=== PATIENT | female | born 1940 | race Caucasian/White ===

== ENCOUNTER → 2016-09-08 08:58 | Outpatient (CLI) | payer MEDICARE, OTHER | END | disposition home or self-care (01) | LOC: D.CT 08:58 | DX: R63.4 Abnormal weight loss (principal) ==

== ENCOUNTER → 2018-01-11 11:04 | Outpatient (CLI) | payer MEDICARE, OTHER | END | disposition home or self-care (01) | LOC: D.MRI 11:04 | DX: M54.5 Low back pain (principal) ==

== ENCOUNTER 2018-01-19 20:10 | Emergency (ER) | payer MEDICARE, OTHER ==
[~2018-01-19] VITALS: Ht 157.5 cm; Wt 56.8 kg
[2018-01-19 20:33] VITALS: Ht 157.5 cm; Wt 56.8 kg
[2018-01-19] MEDS ORDERED: ABX FOR UTI (20:34)
[2018-01-19] MEDS ORDERED: DONEPEZIL HCL10 MG PO (20:34)
[2018-01-19 21:39] LABS: BASOPHILS 0.2 % (0-2); EOSINOPHILS 0.2 % (0-7); HEMATOCRIT 42.3 % (36.0-48.0); HEMOGLOBIN 14.2 g/dL (12-16); IMMATURE GRANULOCYTES 0.4 % (0-5); LYMPHOCYTES 8.4 % (15-50); MCH 30.4 pg (26.0-34.0); MCHC 33.6 g/dL (31.0-37.0); MCV 90.6 fL (80.0-100.0); MEAN PLATELET VOLUME 9.3 fL (7.4-10.4); MONOCYTES 4.7 % (2-11); NEUTROPHILS 86.1 % (40-80); PLATELET COUNT 383 10x3/uL (130-400); RBC 4.67 10x6/uL (4.00-5.40); RDW 13.5 % (11.5-14.5); WBC 12.2 10x3/uL (4.8-10.8)
[2018-01-19 21:46] LABS: ALBUMIN 3.3 g/dL (3.4-5.0); ALKALINE PHOSPHATASE 56 U/L (46-116); ALT (SGPT) 19 U/L (10-68); BILIRUBIN - TOTAL 0.29 mg/dL (0.2-1.3); CALC OSMOLALITY 281 mosm/kg (275-300); CALCIUM 9.2 mg/dL (8.5-10.1); CARBON DIOXIDE 29.4 mmol/L (21.0-32.0); CHLORIDE - SERUM 102 mmol/L (98-107); CREATININE - SERUM 0.8 mg/dL (0.6-1.3); GLUCOSE 130 mg/dL (74-106); POTASSIUM - SERUM 4.2 mmol/L (3.5-5.1); PROTEIN - SERUM 7.1 g/dL (6.4-8.2); SODIUM 141 mmol/L (136-145); UREA NITROGEN 11 mg/dL (7-18); eGFR NON AFRICAN AMERICAN 74 mL/min (90-120)
[2018-01-19 21:57] LABS: CKMB 0.5 U/L (0.0-3.6); CREATINE KINASE 36 UL (21-215)
[2018-01-19 21:58] LABS: TROPONIN-I < 0.017 ng/mL (0.000-0.060)
[2018-01-19 22:05] LABS: APPEARANCE CLEAR (CLEAR); COLOR YELLOW (YELLOW)
[2018-01-19 22:06] LABS: BILIRUBIN NEGATIVE (NEGATIVE); GLUCOSE NEGATIVE (NEGATIVE); KETONE NEGATIVE (NEGATIVE); NITRITE NEGATIVE (NEGATIVE); PROTEIN NEGATIVE (NEGATIVE); SPECIFIC GRAVITY 1.015 (1.005-1.020); UROBILINOGEN NORMAL (NORMAL)
[2018-01-19 22:59] VITALS: BP 140/54
== END 2018-01-19 22:59 | disposition home or self-care (01) ==
LOC: D.ER 20:10
PROVIDERS: Family Medicine
DX: S01.01XA Laceration without foreign body of scalp, initial encounter (principal); W18.30XA Fall on same level, unspecified, initial encounter; Y93.89 Activity, other specified; Y92.019 Unspecified place in single-family (private) house as the place of occurrence of the external cause; R55 Syncope and collapse; F03.90 Unspecified dementia, unspecified severity, without behavioral disturbance, psychotic disturbance, mood disturbance, and anxiety

== ENCOUNTER → 2018-03-01 17:21 | Outpatient (CLI) | payer MEDICARE, OTHER ==
[2018-01-19 20:33] VITALS: BMI 22.9
[~2018-03-01 17:21] MED LIST: ABX FOR UTI; DONEPEZIL HCL10 MG PO
== END | disposition home or self-care (01) ==
LOC: D.LABREF 17:21
DX: R31.9 Hematuria, unspecified (principal); D72.829 Elevated white blood cell count, unspecified

== ENCOUNTER → 2018-03-22 17:52 | Outpatient (CLI) | payer MEDICARE, OTHER ==
[2018-01-19 20:33] VITALS: BMI 22.9
== END | disposition home or self-care (01) ==
LOC: D.LABREF 17:52
DX: R31.9 Hematuria, unspecified (principal)

== ENCOUNTER → 2018-03-28 13:41 | Outpatient (CLI) | payer MEDICARE, OTHER ==
[2018-01-19 20:33] VITALS: BMI 22.9
== END | disposition home or self-care (01) ==
LOC: D.CT 13:41
DX: R31.21 Asymptomatic microscopic hematuria (principal)

== ENCOUNTER 2018-04-18 07:33 | Day surgery (SDC) | payer MEDICARE, OTHER ==
[~2018-04-18] VITALS: Ht 157.5 cm; Wt 58.1 kg
[~2018-04-18 07:33] MED LIST changes: +CALCIUM 250+D T1 TAB PO; +LIPITOR10 MG PO; +MULTI-DAY VITAM1 TAB PO
[2018-04-18 07:52] LABS: HEMATOCRIT 43.1 % (36.0-48.0); HEMOGLOBIN 14.3 g/dL (12-16); MCH 30.4 pg (26.0-34.0); MCHC 33.2 g/dL (31.0-37.0); MCV 91.5 fL (80.0-100.0); MEAN PLATELET VOLUME 9.2 fL (7.4-10.4); RBC 4.71 10x6/uL (4.00-5.40); RDW 13.7 % (11.5-14.5); WBC 7.2 10x3/uL (4.8-10.8)
[2018-04-18 08:25] VITALS: Ht 157.5 cm; Wt 58.1 kg
--- NOTE | 2018-04-18 15:12 | NUR ---
PT RECEIVED FROM SAMREEN TORREZ RN, REPORT RECEIVED
--- NOTE | 2018-04-18 20:28 | NUR ---
2014 #16 GATES CATH PLACED WITH 320CC YELLOW URINE RETURN, EMPTIED DRESSED, DC INSTS GIVEN RX GIVEN RELEASED IN WC WITH SPOUSE.
--- NOTE | 2018-04-20 08:14 | OP ---
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 PROCEDURES: Cystoscopy, cystocele repair using a 6- x 10-cm sheet of [employer] Xenform bovine fascia. FINDINGS: No signs of pelvic mesh. Cystoscopy showed single ureteral orifices bilaterally with no bladder tumors and no bladder injury. SPECIMENS: None. BLOOD LOSS: Minimal, about 50 mL. CLINICAL HISTORY: This is a 77-year-old female who has previously had a hysterectomy with pubovaginal sling and cystocele repair. She now has issues with recurrent urinary tract infections. She has a [place] grade II cystocele recurrence on pelvic examination. I cannot palpate if a mesh was present or not. She is having trouble with bladder emptying and she would like to have the cystocele repaired. She wants to have this repaired using fascia. SHE IS ALLERGIC TO SULFA. We gave her Ancef on-call to the OR. If cystocele repair mesh was detected from her previous surgery, she would like to have that mesh removed. DESCRIPTION OF PROCEDURE: The patient was given induction of general anesthesia while in supine position. She was then placed into dorsal lithotomy position and prepped and draped. A Barney catheter was inserted into the bladder and put to bag drainage. A weighted speculum was used to hold the posterior vaginal wall down. A #2 nylon suture was used to hold the labia majora laterally. These stay sutures were anchored to the medial thighs. The cystocele was seen clearly. She also has a minor degree of [place] grade I rectocele. The anterior vaginal wall was infiltrated with Pitressin solution. Twenty units of vasopressin was dissolved in 100 mL of injectable normal saline. This was injected into the anterior vaginal wall for hydrodissection. A transverse incision was then made at the level of the bladder neck. The dissection was then deepened through the pubocervical fascia and out laterally to the obturator membranes anteriorly. Posteriorly, we continued the dissection to the presacral space containing the ischial spine and the sacrospinous ligaments. I did not detect any mesh during this dissection. I then measured the dimensions from one ischial spine to the other. This turned out to be about 10 cm. The depth from the vaginal cuff to the side of the bladder neck was about 6 cm. The sheath of Xenform was cut to size. I also created a small arch posteriorly to prevent constriction of the rectum, which would make it difficult for her to have a bowel movement. We then placed our suspensory sutures, which are 2-0 Prolene sutures. Two of them were placed 1 cm medial to the ischial spine through the sacrospinous ligaments. The other 2 were placed at the anterior apex of the obturator membrane. We pulled on each of these sutures in turn to make sure that they were through tough fascial tissue and that they would hold as a strong OPERATIVE REPORT [id number] DENISE WOOD. Each of these suspensory sutures were placed through the respective corners of the graft. The graft was then brought into position under the bladder. At the anterior and posterior midline extent of the graft, a suture of 3-0 Vicryl was placed through the bladder wall or through the vaginal wall to hold the graft in position. This would prevent it from curling up into a tight band. We then removed the Barney catheter. Cystoscopy was performed using a 17-Korean cystoscope. No bladder injury was seen. At this point, the cystoscope was removed and the Barney catheter was reinserted into the bladder. Each of the suspensory sutures were then tied down starting with the anterior set. This resulted in good reduction of the cystocele. The vaginal dissection space was irrigated using normal saline and then the anterior vaginal wall transverse incision was closed using running 4-0 Monocryl. The vagina was packed using Kerlix infiltrated with estrogen cream. This will be removed prior to her going home today. The Barney catheter was also removed. If the patient is unable to void later today, she will have to go home with an indwelling Barney catheter; but for now, the catheter is out to give her a chance to void on her own. I will see the patient in followup next week to check on her voiding symptoms. TRANSINT:[id number] Voice Confirmation ID: [id number] DOCUMENT ID: [id number] REYNALDO WISE MD at 0814 CC: [id number] DICTATION DATE: 04/18/18 1503 INSTRUMENTATION ENGINEERING TECHNICIAN: 04/18/18 1614 [facility] 04/18/18 [place] [id number] [place] [address]
== END 2018-04-18 20:29 | disposition home or self-care (01) ==
LOC: D.OPS 07:33 → D.PAN 08:30 → D.OPS 08:30 → D.PAN 11:00 → D.OPS 11:00 → D.PAN 13:00 → D.OPS 20:29
PROVIDERS: ATTEND Urology
DX: N81.11 Cystocele, midline (principal); Z01.812 Encounter for preprocedural laboratory examination; Z88.2 Allergy status to sulfonamides

== ENCOUNTER 2018-05-12 19:00 | Outpatient (CLI) | payer MEDICARE, OTHER ==
[2018-04-18 08:25] VITALS: BMI 23.4
== END 2018-05-12 23:59 | disposition home or self-care (01) ==
LOC: D.MAMMO 19:00
PROVIDERS: ATTEND Family Medicine
DX: Z12.31 Encounter for screening mammogram for malignant neoplasm of breast (principal)